=== PATIENT | male | born 1975 | race Caucasian/White ===

== ENCOUNTER 2017-05-04 12:11 | Day surgery (SDC) | payer OTHER ==
[~2017-05-04] VITALS: Ht 167.6 cm; Wt 70.0 kg
[~2017-05-04 12:11] MED LIST: CYCL-36 PO; GLYCOPYRROLATE 1 MG/5 ML SYRINGE IV PUSH ONE; KETOROLAC TROMETHAMINE 30 MG/ML (IVP) VIAL IV PUSH ONE; LIDOCAINE HCL 1% PF 5 ML SYRINGE OTHER ONE; MOBI15TA PO; ONDANSETRON HCL 4 MG/2 ML VIAL IV PUSH ONE; PHENYLEPH/NS 1000 MCG/10 ML SYR IV ONE; PROPOFOL 200 MG/20 ML AMP IV ONE; ceFAZolin INJ 1,000 MG VIAL IV ONE; ePHEDrine/NS 25 MG/5 ML SYRINGE IV ONE
[2017-05-04 12:26] VITALS: BP 174/126; PULSE 99; RESP 24; O2SAT 97
[2017-05-04 12:30] VITALS: BP 142/69; TEMP 98.6
[2017-05-04] MEDS ORDERED: ceFAZolin 2 GM PREMIX 50 ML IV ONE (12:30)
[2017-05-04] MEDS ORDERED: ceFAZolin 2 GM PREMIX 50 ML ONE (12:30)
[2017-05-04] MEDS ORDERED: LIDOCAINE 2%/EPINEPHrine 1:100,000 20ML MDV NERV BLOCK ONE (12:30)
[2017-05-04] MEDS ORDERED: GABA400C5 PO (12:33)
[2017-05-04] MEDS ORDERED: CLON0.2T PO (12:33)
[2017-05-04] MEDS ORDERED: SUBO8MIS SL (12:34)
[2017-05-04] MEDS ORDERED: SODIUM CHLOR 0.9% 250 ML INJ 250 ML IV ONE (12:45)
--- NOTE | 2017-05-04 12:49 | PD ---
HPI . Laceration Chief Complaint: Bleeding Time Seen by Provider: 12:30 Travel History International Travel<30 days: No Contact w/Intl Traveler<30days: No Traveled to known affect area: No History of Present Illness HPI This patient presents to us via [facility] with a laceration on the left wrist with an associated arterial bleed. Tourniquet was placed by [facility] in order to control the bleeding. The patient is complaining bitterly with pain secondary to the tourniquet. He was treated en route with 8 mg of morphine IV. He takes Suboxone regularly. I have ordered Ativan for him but the medics say that they did not get that order because somebody else was talking over them on the radio. The patient reports an accidental laceration. He was trying to cut PVC pipe. He states that his tetanus is up-to-date. He has no known drug allergies. The bleeding was severe. It was controlled with a tourniquet. The injury occurred just prior to arrival. [facility] Past Medical History Diminished Hearing: No Tetanus Vaccination: < 5 Years Past Surgical History Eye Surgery: Yes Other Surgery: Yes (RIGHT EYE, RIGHT KNEE, RIGHT THUMB) Social History Alcohol Use: Yes Tobacco Use: Yes (1/2-1PPD ) Substance Use: Yes (PREVIOUS HEROIN USER ) Allergies-Medications (Allergen,Severity, Reaction): Coded Allergies: No Known Allergies (Unverified Adverse Reaction, Unknown, 05/04/17) Reported Meds & Prescriptions Reported Meds & Active Scripts Active Reported Suboxone Sublingual Film (Buprenorphine-Naloxone Sublingual Film) 8-2 Mg Film 1 Film SL BID Unique ID number required: Clonidine (Clonidine HCl) 0.2 Mg Tab 0.2 Mg PO DIRECTED PRN Gabapentin 400 Mg Cap 400 Cap PO TID Review of Systems Except as stated in HPI: all other systems reviewed are Neg Physical Exam Narrative GENERAL: Awake and alert. Diaphoretic. Very agitated. SKIN: Centimeter laceration extending from the left forearm to the left thumb. Bleeding was controlled by the tourniquet. HEAD: Normocephalic/atraumatic. EYES: Pupils are equal. Extraocular movements are intact. NECK: Normal range of motion. CARDIOVASCULAR: Regular rate and rhythm. RESPIRATORY: Nonlabored respirations. MUSCULOSKELETAL: Tendons are visible in the laceration. Because of the acuity of the situation, I was unable to assess the integrity of the tendons. NEUROLOGICAL: I was not able to early exam and his distal neurological status. PSYCHIATRIC: Agitated. Demanding that we remove the tourniquet right away. Data Data Last Documented VS Vital Signs Date Time Temp Pulse Resp B/P (MAP) Pulse Ox O2 Delivery O2 Flow Rate FiO2 05/04/17 12:30 98.6 142/69 (93) 05/04/17 12:26 99 24 97 Nasal Cannula 2.00 Orders Orders Lidocai-Epi 2%-1:100,000 Inj (Xylocaine- (05/04/17 12:30) Cefazolin 2 Gm Premix (Ancef 2 Gm Premix (05/04/17 12:30) Wrist, Complete (Ytw3nfe) (05/04/17 12:30) Ice/Cold Pack (05/04/17 12:30) Basic Metabolic Panel (Bmp) (05/04/17 12:30) Complete Blood Count With Diff (05/04/17 12:30) Cefazolin 2 Gm Premix (Ancef 2 Gm Premix (05/04/17 12:30) Prothrombin Time / Inr (Pt) (05/04/17 12:40) Act Partial Throm Time (Ptt) (05/04/17 12:40) Type And Screen (05/04/17 12:41) Sodium Chlor 0.9% 250 Ml Inj (Ns 250 Ml (05/04/17 12:45) Protein Corrected Calcium(Pcc) (05/04/17 12:35) Diet Npo (05/04/17 Lunch) Consult Hand Surgery (05/04/17 ) (Hub Use Only)Inp Phy Cons/Ref (05/04/17 ) Consent (05/04/17 15:19) Admit Order (Ed Use Only) (05/04/17 15:42) Labs Laboratory Tests Test 05/04/17 12:35 White Blood Count 5.7 TH/MM3 Red Blood Count 3.58 MIL/MM3 Hemoglobin 11.7 GM/DL Hematocrit 34.3 % Mean Corpuscular Volume 95.6 FL Mean Corpuscular Hemoglobin 32.7 PG Mean Corpuscular Hemoglobin Concent 34.2 % Red Cell Distribution Width 12.7 % Platelet Count 239 TH/MM3 Mean Platelet Volume 8.9 FL Neutrophils (%) (Auto) 58.8 % Lymphocytes (%) (Auto) 25.7 % Monocytes (%) (Auto) 10.1 % Eosinophils (%) (Auto) 3.5 % Basophils (%) (Auto) 1.9 % Neutrophils # (Auto) 3.4 TH/MM3 Lymphocytes # (Auto) 1.5 TH/MM3 Monocytes # (Auto) 0.6 TH/MM3 Eosinophils # (Auto) 0.2 TH/MM3 Basophils # (Auto) 0.1 TH/MM3 CBC Comment DIFF FINAL Differential Comment Prothrombin Time 12.3 SEC Prothromb Time International Ratio 1.2 RATIO Activated Partial Thromboplast Time 30.3 SEC Blood Urea Nitrogen 17 MG/DL Creatinine 0.71 MG/DL Random Glucose 96 MG/DL Total Protein 5.7 GM/DL Calcium Level 6.4 MG/DL Sodium Level 147 MEQ/L Potassium Level 2.9 MEQ/L Chloride Level 116 MEQ/L Carbon Dioxide Level 22.1 MEQ/L Anion Gap 9 MEQ/L Estimat Glomerular Filtration Rate 122 ML/MIN Protein Corrected Calcium 7.1 MG/DL MDM Medical Decision Making Medical Screen Exam Complete: Yes Emergency Medical Condition: Yes Differential Diagnosis Differential diagnosis includes but is not limited to skin laceration, muscular laceration, tendon laceration, neurovascular laceration. Narrative Course This patient presents with a laceration of the left wrist with an arterial bleed. Tourniquet had previously been placed by [facility]. The wound was quickly repaired so that the tourniquet that could be released. There was no significant bleeding following the release of the tourniquet. An x-ray of his wrist has been ordered. He has been given Ancef 2 g IV. Labs have been ordered so that he may be taken to the operating room. The wound needs to be further explored, cleaned and appropriately repaired. CBC Diagram 05/04/17 12:35 Last Impressions Wrist X-Ray 05/04/17 1230 Signed Impressions: Service Date/Time: April 13:09 - CONCLUSION: Unremarkable examination of the left wrist. MD Dr. Sima Hernandez plans to take the patient to the operating room for exploration and repair. Critical Care Narrative Aggregate critical care time was 30 minutes. Time to perform other separately billable procedures was not included in the critical care time. My time did not include minutes spent treating any other patients simultaneously or on activities that did not directly contribute to the patient's treatment. The services I provided to this patient were to treat and/or prevent clinically significant deterioration due to laceration with arterial bleeding requiring a tourniquet. I provided critical care services requiring my management, as noted below: Chart data review, documentation time, medication orders and management, vital sign assessments/reviewing monitor data, ordering and reviewing lab tests, ordering and interpreting/reviewing x-rays and diagnostic studies, care of the patient and discussion of the patient with the admitting physicians Procedures Procedure Narrative LACERATION LOCATION: Left wrist LENGTH: 10 cm NUMBER OF STITCHES/DELROY: A REPAIR: The area of the laceration was prepped with Betadine and sterilely draped. The laceration was infiltrated with 2% lidocaine with epi. The wound was not copiously irrigated and explored due to the arterial bleeding and the need for emergent closure of the wound The wound was closed using 3-0 Ethilon. This was a single layer repair. A sterile dressing was applied. The patient was advised to keep the dressing clean and dry. Patient tolerated the procedure well. Physician Communication Physician Communication Dr. Gao will see the patient. Diagnosis Primary Impression: Laceration of wrist, left, complicated Qualified Codes: S61.512A - Laceration without foreign body of left wrist, initial encounter Admitting Information Admitting Physician Requests: Observation Condition: Stable Amy Bean MD May 04, 2017 12:49
[2017-05-04 13:11] LABS: AUTOMATED NEUTROPHIL # 3.4 TH/MM3 (1.8-7.7); BASOPHIL # 0.1 TH/MM3 (0-0.2); BASOPHIL % 1.9 % (0.0-2.0); EOSINOPHIL # 0.2 TH/MM3 (0-0.4); EOSINOPHIL % 3.5 % (0.0-4.0); HEMATOCRIT 34.3 % (39.0-51.0); HEMO FLAGS DIFF FINAL; LYMPH % 25.7 % (9.0-44.0); LYMPHOCYTE # 1.5 TH/MM3 (1.0-4.8); MEAN CELL VOLUME 95.6 FL (80.0-100.0); MEAN CORPUSCULAR HEMOGLOBIN 32.7 PG (27.0-34.0); MEAN CORPUSCULAR HGB CONC 34.2 % (32.0-36.0); MONO % 10.1 % (0.0-8.0); NEUT % 58.8 % (16.0-70.0); PLATELET COUNT 239 TH/MM3 (150-450); RED BLOOD COUNT 3.58 MIL/MM3 (4.50-5.90); RED CELL DISTRIBUTION WIDTH 12.7 % (11.6-17.2); WHITE BLOOD COUNT 5.7 TH/MM3 (4.0-11.0)
[2017-05-04 13:17] LABS: APTT (PATIENT) 30.3 SEC (24.3-30.1); INTERNATIONAL NORMALIZED RATIO 1.2 RATIO; PROTHROMBIN TIME - PATIENT 12.3 SEC (9.8-11.6)
--- NOTE | 2017-05-04 13:32 | RADRPT ---
EXAM DATE/TIME: 05/04/2017 13:09 [place] COMPARISON: No previous studies available for comparison. INDICATIONS : Cut left wrist with a razor blade while doing home improvements. MEDICAL HISTORY : None. SURGICAL HISTORY : None. ENCOUNTER: Initial ACUITY: 1 day PAIN SCORE: 0/10 LOCATION: Left wrist. FINDINGS: Three view examination of the left wrist demonstrates no soft tissue swelling, dislocation, or fractu re. The carpal bones are in normal alignment. The joint spaces are maintained. Bony mineralization is normal. CONCLUSION: Unremarkable examination of the left wrist. Willi Snyder MD on May 04, 2017 at 13:29 Board Certified Radiologist. This report was verified electronically.
[2017-05-04 13:37] LABS: BICARBONATE 22.1 MEQ/L (21.0-32.0)
[2017-05-04 14:00] LABS: CALCIUM-PROTEIN CORRECTED 7.1 MG/DL (8.5-10.1); POTASSIUM 2.9 MEQ/L (3.5-5.1)
[2017-05-04 16:05] VITALS: BP 132/67; PULSE 77; RESP 16; O2SAT 100
[2017-05-04] MEDS ORDERED: NEOMYCIN/POLYMYXIN 1 ML G.U. IRRIGANT ONE ×2 (16:05→16:06)
[2017-05-04] MEDS ORDERED: LIDOCAINE HCL 2% 50 ML VIAL ONE (16:08)
[2017-05-04] MEDS ORDERED: BUPIVACAINE HCL PF 0.5% 30 ML VIAL ONE (16:08)
[2017-05-04] MEDS ORDERED: HEPARIN SODIUM - SQ 10,000 UNITS/ML VIAL ONE (18:33)
[2017-05-04] MEDS ORDERED: ceFAZolin INJ 1,000 MG VIAL IV ONE ×2 (19:06→20:06)
[2017-05-04] MEDS ORDERED: NEOMYCIN/POLYMYXIN 1 ML G.U. IRRIGANT IRRIGATION ONE (19:31)
[2017-05-04] MEDS ORDERED: CEPH-460 PO (20:51)
[2017-05-04] MEDS ORDERED: NORC5TAB PO (20:51)
[2017-05-04] MEDS ORDERED: IBUP1TAB7 PO (21:02)
[2017-05-04 21:40] VITALS: BP 144/99; PULSE 78; RESP 20; TEMP 97.4; O2SAT 100
--- NOTE | 2017-05-04 23:17 | MB ---
cc: DERICK LEON MD DATE OF CONSULTATION 05/04/17 HISTORY OF PRESENT ILLNESS The patient is a 41-year-old [id number] male who came to emergency room by [facility] after an accidental laceration of his left hand and wrist while working. He states it was a brand new blade. He was trying to cut PVC pipe. He states his tetanus is up-to-date. He denies any loss of sensation and the fingers are all soft, pink and warm, but there was arterial bleeding in the field. PAST MEDICAL HISTORY MRSA infection right thumb. PAST SURGICAL HISTORY 1. Eye surgery of his right eye 2. Right knee surgery 3. Right thumb surgery. SOCIAL HISTORY Alcohol use last was one month ago. Tobacco smokes one half to one pack per day. Substance use nothing recently. ALLERGIES No known drug allergies. MEDICATIONS 1. Suboxone 8 mg sublingual b.i.d. 2. Clonidine 0.2 mg p.o. as directed p.r.n. 3. Gabapentin 400 mg p.o. t.i.d. FAMILY HISTORY Noncontributory. REVIEW OF SYSTEMS Patient is not complaining of headache or double vision. He does complain of longstanding blurry vision in his right eye. Denies any coughing, wheezing or shortness of breath. He is not complaining of any chest pain or palpitations. He is not complaining of any nausea, vomiting or abdominal pain. He is not complaining of any burning, frequency or urgency with urination. He is not complaining of any spine, neck or back pain. He is not complaining of any weight gain or weight loss. He is not complaining of any night sweats, fevers or chills. He is not complaining of any anxiety, depression or suicidal ideations. He is not complaining of any lesions, rashes or eruptions on the skin. IMAGING STUDIES X-rays done today of the left wrist reveals an unremarkable examination of the left wrist and no evidence of any fractures, foreign bodies or dislocations. LABORATORY DATA Laboratory studies were performed - white blood cell count 5.7000, hemoglobin of 11.7 gm/dl. Hematocrit 34.3, platelet count 239,000. Potassium is 2.9. BUN and creatinine is 17 and 0.71. Coagulation studies are within normal limits. PHYSICAL EXAMINATION GENERAL: He is well-developed, well-nourished in no apparent distress. VITAL SIGNS: Temperature is 98.6, blood pressure 142/69, heart rate 99, respiratory rate 24, pulse ox 97% on room air. Left upper extremity - he has a pressure dressing in place. On examination, he does have a 12 cm laceration from the dorsal aspect of the thumb around to the radial volar aspect of the left wrist. Musculotendinous units all appear to be intact. He has full active range of motion. Capillary refill is less than 2 seconds in all fingertips. He does have sensation intact in all sides of every finger. He is moving his elbow and his shoulder freely. Of note, the patient states he has a longstanding pinched nerve in his neck and has had low term numbness of the tips of his left second, third and fourth fingers. IMPRESSION Laceration left wrist and radial artery. PLAN Go to the operating room for exploration and possible repair. I discussed the case with the patient as he might need to be admitted overnight. He understands and requests that we proceed. MD PATRICK Mann III/ /3:24 PM /10:39 PM
--- NOTE | 2017-05-06 18:28 | MP ---
cc: DERICK GAO MD DATE OF SURGERY 05/04/2017 PREOPERATIVE DIAGNOSIS Laceration left hand and wrist. PROCEDURE 1. Repair of left radial artery and ligation of small severed branches. 2. Repair of left flexor carpi radialis tendon. 3. Repair of left extensor pollicis longus tendon. 4. Exploration penetrating injury left hand and wrist. SURGEON Joe Gao MD PROCEDURE IN DETAIL The patient was brought to the operative room, placed supine on the operating table. After the correct side and site of surgery were verified by members of each team in the room multiple times including the patient and myself and after adequate preop markings and preoperative written consent were verified by everyone and after adequate preop time-out was performed to everyone's satisfaction, general anesthesia achieved. The left upper extremity was prepped, draped in traditional sterile surgical fashion. The existing sutures were removed. Thorough irrigation using saline was performed for a liters worth, exploration was then performed. With a hand-held sterile Doppler identifying the radial artery which was intact, but there were two smaller branches that were avulsed from it leaving bleeding holes in the radial artery and these were repaired using 8-0 nylon sutures to close the holes and tying off the distal end and leaving the radial artery proper completely intact with normal triphasic flow. Exploration revealed 50% transections in the EPL tendon and the FCR tendon. These were repaired. The EPL was repaired, the 50% that was transected was repaired in end-to-end fashion using 4-0 Prolene suture oversewn with 3-0 Ethibond and the FCR repaired using 2-0 Prolene in a core strand repair. Passive range of motion examination was performed and was found to be full and unlimited. The axillary tourniquet was used sparingly throughout the case. There was no active bleeding or hematoma formation. Capillary refill was less than 2 seconds in all fingertips. All of the skin edges reapproximated with interrupted and running 4-0 chromic sutures. The hand and arm were then thoroughly cleansed and dried. Betadine Adaptic dressing applied on top of the wound followed by a bulky protective short-arm thumb spica splint in the usual fashion. The patient was awaken from anesthesia and then transferred to Post Anesthesia Care Unit awake in stable condition at the end of the case. The sponge, needle, instrument counts were correct at the end of the case as reported by nurses in the room. MD PATRICK Mann III/ /8:51 PM /5:58 PM
== END 2017-05-04 21:40 | disposition home or self-care (01) ==
LOC: NEPE 12:11 → HSDC 15:39 → N06B 19:41 → HSDC 21:40
PROVIDERS: ATTEND Orthopaedic Surgery Hand Surgery
DX: S66.922A Laceration of unspecified muscle, fascia and tendon at wrist and hand level, left hand, initial encounter (principal); S65.112A Laceration of radial artery at wrist and hand level of left arm, initial encounter; S61.512A Laceration without foreign body of left wrist, initial encounter; I49.3 Ventricular premature depolarization; F17.210 Nicotine dependence, cigarettes, uncomplicated; W27.8XXA Contact with other nonpowered hand tool, initial encounter; Y93.89 Activity, other specified; Y99.0 Civilian activity done for income or pay
CPT/HCPCS: 01810; 12004; 26350; 26410; 35206; 73110; 80048; 84155; 85025; 85610; 85730; 86850; 86900; 86901; 96365; 96366; 99291; J0690; J1644; J1885; J2370; J2405; J7050